=== PATIENT | male | born 1990 | race Two or more races ===

== ENCOUNTER 2024-12-27 15:04 | Emergency (ER) | payer MEDICAID, OTHER, SELFPAY ==
[2024-12-27 16:17] VITALS: BP 128/57; PULSE 61; RESP 16; TEMP 36.6; O2SAT 99; BMI 28.6
--- NOTE | 2024-12-27 16:22 | ED_ITS ---
HPI - Skin/Abscess/Foreign Bdy General Chief complaint: Urogenital-Male Stated complaint: scrotum itchy reddened Time Seen by Provider: 12/27/24 20:06 Source: patient Limitations: language barrier History of Present Illness ED Provider: Harmony Reis PA-C HPI narrative: 34-year-old male presents with rash over his genitalia x1 week. Patient states he has developed itchiness and redness over his penile head, shaft and the scrotum. Denies dysuria, penile discharge, scrotal swelling or risk for STD. No one else has the same rash. Patient does states he suffers from eczema at times. Related Data Allergies Allergy/AdvReac Type Severity Reaction Status Date / Time No Known Allergies Allergy Verified 12/27/24 16:29 Review of Systems Review of Systems: Yes all other systems are reviewed and are negative Constitutional: Constitutional: Denies fatigue and Denies fever(s) Cardiovascular: Cardiovascular: Denies chest pain and Denies dyspnea Respiratory: Respiratory: Denies dyspnea Gastrointestinal: Gastrointestinal: Denies abdominal pain, Denies nausea and Denies vomiting Genitourinary: Genitourinary: Denies genital lesions, Denies genital pain, Denies dysuria, Denies penile discharge and Denies scrotal swelling Integumentary/Breasts: Skin/Breast: Reports pruritus, Reports erythema and Reports rash Endocrine: Endocrine: Denies fatigue [facility] Past Medical History Attestation statement: The following information was validated with the patient. Social History Social History Advance Directives: No Advance Directives Information Provided: No Physical Exam Vital Signs: Vital Signs: Last Vital Signs Temp 97.9 F 12/27/24 16:17 Pulse 61 12/27/24 16:17 Resp 16 12/27/24 16:17 BP 128/57 L 12/27/24 16:17 Pulse Ox 99 12/27/24 16:17 O2 Del Method Room Air 12/27/24 16:17 BMI result Body Mass Index 28.6 Const: Other: Alert well-appearing Orientation/consciousness: patient oriented x3 Resp: Effort & Inspection: normal respiratory effort Cardio: Other: Normal peripheral perfusion : Other: I am not seeing a rash, I see what appears to be mildly erythematous chafed skin over the shaft just below the owens Skin: Other: Warm dry no rash Neuro: General: patient oriented x3, gait normal, no focal motor deficits and CN's II-XI intact bilaterally Psych: Other: Cooperative Course Course Course Narrative: This is a Rapid Medical Examination (RME) performed by Stevenson Lima PA-C in triage. Full HPI, ROS, assessment and treatment plan per primary provider in the Main ED. 34 yo male here for eval reports itchy red rash to groin area x3 days. sexually active with female partner. no penile discharge, abd pain, urinary sx. + area not visualized in triage d/t privacy Plan: UA/CTNG, further eval in back Medical Decision Making Medical Decision Making MDM Narrative: 34-year-old male presents with rash over his genitalia x1 week. Patient states he has developed itchiness and redness over his penile head, shaft and the scrotum. Denies dysuria, penile discharge, scrotal swelling or risk for STD. No one else has the same rash. Patient does states he suffers from eczema at times. Problem: Eczema History: Per patient I have considered the following differential diagnoses: Tinea cruris, molluscum, syphilis, herpes, urethritis, orchitis, epididymitis Plan: The patient has what is likely mild eczema, there was no evidence of tinea, there were no lesions that are suggestive of molluscum, this certainly is not syphilis or herpes he has no swelling/pain of the scrotum to suggest orchitis or epididymitis. No penile discharge or dysuria to suggest urethritis. Urinalysis and GC chlamydia were obtained from triage, I let the patient know that the GC chlamydia is pending and that he will be contacted for treatment if he tests positive. He verbalizes understanding. We will send with home care instructions. I have independently reviewed the following tests: Labs: Urine not infected, GC chlamydia pending Lab Data Labs: Lab Results 12/27/24 Range/Units 17:18 Urine Color Yellow Urine Appearance Clear Urine pH 5.5 (5.0-9.0) Ur Specific [place] 1.015 (1.005-1.025) Urine Protein Negative (Neg-Trace) mg/dL Urine Glucose (UA) Negative (Negative) mg/dL Urine Ketones Negative (Negative) mg/dL Urine Blood Negative (Negative) Urine Nitrite Negative (Negative) Ur Leukocyte Esterase Negative (Negative) Discharge Plan Discharge Clinical Impression: Eczema Patient Disposition: Home, Self-Care Instructions: Cold Compress or Soak (ED), Dermatitis (ED) Additional Instructions: Your skin irritation is not consistent with a sexually transmitted disease, it is likely eczema. See home care instructions. You can use topical hydrocortisone, apply a thin film to the itchy areas, twice a day. Also use a moisturizing lotion such as Eucerin. Both products can be purchased [id number]. Follow up with your primary care provider as needed. You have gonorrhea and chlamydia testing pending, if you screened positive, you will be contacted by the hospital for treatment. Print Language: English
[2024-12-27 17:24] LABS: Appearance Urine Clear; Color Urine Yellow; Glucose Urine UA Negative (Negative); Leukocyte Esterase Urine Negative (Negative); Nitrite Urine Negative (Negative); PH 5.5 (5.0-9.0); Specific Gravity - Urine 1.015 (1.005-1.025); Urine Blood Negative (Negative); Urine Ketones Negative (Negative); Urine Protein Negative (Neg-Trace)
--- OUTSIDE RECORDS SUMMARY | 2024-12-27 18:44 | XMS_ITS | Encounter Summary ---
Author Organization [employer] Address [address] [facility] [address] [place] [address] Care Team Providers Care Certified Professional Coder Name Role Phone Ravi Youssef NP Primary Care Provider [phone] Cassidy Dailey Unavailable Unavailable Austin Major Unavailable Unavail able Encounter Details Date Type Department Care Team (Late st Contact Info) Description 12/27/2024 Telephone [facility] MED[facility] [address] [place] [address] Ravi Youssef, GERMAN [address] [place] [address] Social History Tobacco Use Types Packs/Day Years Used Date Smoking Tobacco: Every Day Cigarettes Smokeless Tobacco: Never Alcohol Use Standard Drinks/Week Comments Yes 24 (1 standard drink = 0.6 oz pu re alcohol) Alcohol Answer Date Recorded How often do you have a drink containing alcohol ? 0 10/30/2023 How many drinks containing a lcohol do you have on a typical day when you are drinking? 0 10/30/2023 How often do you have six or more drinks on one occasion? 0 10/30/2023 Depression Answer Date Recorded Patient Health Questionnaire-9 Score 0 12/03/2023 Patient Health Questionnaire-9 Score 0 12/03/2023 Last PHQ-9: Questionnaire Data Not on file 0 12/03/2023 Housing Stability Answer Date Recorded What is your housing situation today? I have thang urena 05/04/[address] you li ve. Do you have problems with any of the following? None of the above 05/04/2024 Food Insecurity Answer Date Recorded Within the past 12 months, y ou worried that your food would run out before you got money to buy more: Never True 05/04/2024 Within the past 12 months,th e food you bought just didn't last and you didn't have enough money to get more: Never True 12/2023 Transportation Answer Date Recorded In the past 12 months, has l ack of transportation kept you from medical appts, meetings, work or from getting things needed for daily living? No 05/04/2024 Intimate Partner Violence Answer Date R ecorded Within the last year, have y ou been afraid of your partner or ex-partner? 2 10/30/2023 Within the last year, have y ou been humiliated or emotionally abused in other ways by your partner or ex-partner? 2 Within the last year, have y ou been kicked, hit, slapped, or otherwise physically hurt by your partner or ex-partner? 2 10/30/2023 Within the last year, have y ou been raped or forced to have any kind of sexual activity by your partner or ex-partner? 2 10/30/2023 Utilities Answer Date Recorded In the past 12 months, has t he [employer], gas, oil or water [employer] threatened to shut off services in your home? No 05/04/2024 Depression Answer Date Recorded Patient Health Questionnaire-2 Score 0 12/03/2023 Internet Access Answer Date Recorded Internet Access Q1 Yes 07/05/2024 Internet Access Q2 Not on file 07/05/2024 Sex and Gender Information Value Date Recorded Sex Assigned at Male 01/29/2023 11:38 AM EDT Legal Sex Male 11:35 AM EDT Gender Identity Male 01/29/2023 11:38 AM EDT Sexual Orientation Straight 01/29/2023 11 :38 AM EDT Occupation Industry Job Start Date Job End Date construction Not on file Not on file Not on file documented as of this encounter Miscellaneous Notes * Telephone Encounter - Aaliyah Hanson LPN - 12/27/2024 2:17 PM EST Spoke with pt via magistrate [phone]. He reports for the past week his penis has been red and irritated. Pt states it is extremely itchy. Pt was hoping to be seen today. No appointments appointments available this afternoon. Pt will go to the ED at [facility]. Please monitor for ED report. Thank you * Telephone Encounter - Aaliyah Hanson LPN - 12/27/2024 2:06 PM EST 12/27/2024 01:38 PM EST by Austin Warren Incoming Jonathan Noel (Self) Pt requested an urgent thelephone visit or an appt. documented in this encounter Plan of Treatment Upcoming Encounters Date Type Department Care Team (Late st Contact Info) Description 04/18/2025 8:00 AM EDT Office Visit [facility] ADULT DENTAL [address] [place] [address] Сергей Diallo documented as of this encounter Visit Diagnoses Not on filedocumented in this encounter Additional Health Concerns Assessment Noted Time PHQ-9 Depression Total Score: 0 12/03/19 1:19 PM EST documented as of this encounter Care Teams Certified Professional Coder Relationship Specialty Start Date End Date Ravi Youssef NP [address] [place] [address] PCP - General Internal Medicine 01/29/23 Cassidy Dailey Health Navigator Financial Counseling and Assistance Services 01/29/23 Austin Major Community Health Worker 07/23/23 documented as of this encounter
--- OUTSIDE RECORDS SUMMARY | 2024-12-27 18:44 | XMS_ITS | Encounter Summary ---
Author Organization [employer] Address [address] [facility] [address] [place] [address] Care Team Providers Care Soft Top Installer Name Role Phone Ravi Youssef HUMAN RESOURCES ASSOCIATE Primary Care Provider [phone] Cassidy Dailey Unavailable Unavailable Austin Major Unavailable Unavail able Encounter Details Date Type Department Care Team (Late st Contact Info) Description 01/19/2024 Orders Only [place] [facility] MED[facility] [address] [place] [address] Ravi Youssef, GERMAN [address] [place] [address] History of cardiomegaly Social History Tobacco Use Types Packs/Day Years [...] is your housing situation today? I have housing today, but I am worried about losing housing in the future 10/30/[address] you li ve. Do you have problems with any of the following? None of the above 10/30/2023 Food Insecurity Answer Date Recorded Within the past 12 months, y ou worried that your food would run out before you got money to buy more: Sometimes True 2022 Within the past 12 months,th e food you bought just didn't last and you didn't have enough money to get more: Sometimes True 10/30/2023 Transportation Answer Date Recorded In the past 12 months, has l ack of transportation kept you from medical appts, meetings, work or from getting things needed for daily living? Yes, it has kept me from medical appointments or getting medications. 10/30/2023 Intimate Partner Violence Answer Date R ecorded [...] the past 12 months, has t he electric, gas, oil or water company threatened to shut off services in your home? 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 Not on file documented as of this encounter Plan of Treatment Upcoming Encounters Date Type Department Care Team ([facility] st Contact Info) Description 04/18/2025 8:00 AM EDT Office Visit [facility] ADULT DENTAL [address] [place] [address] Сергей Diallo documented as of this encounter Procedures Procedure Name Priority Date/Time Associated Diagnosis Comments TRANSTHORACIC ECHO (TTE) COMPLETE Routine 01/16/2024 History of cardiomegaly documented in this encounter Results * Transthoracic Echo (TTE) Complete (01/16/2024) us Ravi Youssef HUMAN RESOURCES ASSOCIATE CV ECHO PROCEDURES Final Res ult documented in this encounter Visit Diagnoses Diagnosis History of cardiomegaly documented in this encounter Additional Health Concerns Assessment Noted Time PHQ-9 Depression Total Score: 0 12/03/19 24 1:19 PM EST documented as of this encounter Care Teams Soft Top Installer Relationship Specialty Start Date End Date Ravi Youssef NP [address] [place] [address] PCP - General Internal Medicine 01/29/23 Cassidy Dailey Health Navigator Financial Counseling and Assistance Services 01/29/23 Austin Major Community Health Worker 07/23/23 documented as of this encounter
--- OUTSIDE RECORDS SUMMARY | 2024-12-27 18:44 | XMS_ITS | Encounter Summary ---
Author Organization [employer] Address [address] [facility] [address] [place] [address] Care Team Providers Care Outdoor Adventure Leader Name Role Phone Ravi Youssef GERMAN Primary Care Provider [phone] Cassidy Dailey Unavailable Unavailable Austin Major Unavailable Unavail able Reason for Visit * Reason Comments [facility]: Medical Appt Encounter Details Date Type Department Care Team (Late st Contact Info) Description 12/27/2024 Patient Outreach [facility] Case Management [address] [place] [address] Austin Major [facility]: Medical Appt Social History Tobacco Use Types Packs/Day Years [...] Description 04/18/2025 8:00 AM EDT Office Visit [facility] ADULT D[facility] [address] [place] [address] Сергей Diallo documented as of this encounter Visit Diagnoses Not on filedocumented in this encounter Additional Health Concerns Assessment Noted Time PHQ-9 Depression Total Score: 0 12/03/19 24 1:19 PM EST documented as of this encounter Care Teams Outdoor Adventure Leader Relationship Specialty Start Date End Date Ravi Youssef NP [address] [facility] [place] [address] PCP - General Internal Medicine 01/29/23 Cassidy Dailey Health Navigator Financial Counseling and Assistance Services 01/29/23 Austin Major Community Health Worker 07/23/23 documented as of this encounter
--- OUTSIDE RECORDS SUMMARY | 2024-12-27 18:44 | XMS_ITS | Clinical Summary ---
Author Organization [employer] Address [address] [place] [address] [address] [place] [address] Care Team Providers Care Silk Printer Name Role Phone Ravi Youssef SUPERVISOR LAMP SHADES Primary Care Provider [phone] Cassidy Dailey Unavailable Unavailable Austin Major Unavailable Unavail able Allergies No known active allergies Medications * This document contains information received from the source organization and may not represent a complete record from that organization. ketoconazole (NIZOral) 2 % creamIndication s:Seborrheic dermatitis Apply topically 2 times daily. 30 g 1 Active Active Problems Problem Noted Date Diagnosed Date Adjustment disorder with mixed anxiety and depre ssed mood 12/04/2023 History of cardiomegaly 10/30/2023 Smoking 10/30/2023 Seborrheic dermatitis 10/30/2023 Encounters Date Type Department Care Team Description 12/27/2024 Telephone [place] [facility] MED[facility] [address] [place] [address] Ravi Youssef NP 12/27/2024 [facility] [address] [place] [address] Austin Major [facility]: Medical Appt 12/03/2024 [facility] [address] [place] [address] Austin Major EPIC Update 10/18/2024 8:00 AM EST Office Visit [facility] ADULT DENTAL [address] [place] [address] Сергей Diallo Dental calculus (Primary Dx) from Last 3 Months Immunizations Name Administration Dates Next Due Hep B, adult 05/04/2024,10/30/2023 Influenza injectable quadriv alent IIV4 with preservative 09/15/2023 Moderna Covid-19 Vaccine 12+ 05/04/2024 Family History Medical History Relation Name Comments Diabetes Father Hyperlipidemia Father Unknown status Mother No Known Problems Other 4 full sib lings, 2 half siblings, all alive and well Relation Name Status Comments Father Mother Other Social History Tobacco Use Types Packs/Day Years Used Date Smoking Tobacco: Every Day Cigarettes Smokeless Tobacco: Never Tobacco Cessation:Ready to Q uit: Not Asked; Counseling Given: Not Answered Alcohol Use Standard Drinks/Week Comments Yes 24 [...] the past 12 months, has t he [employer], gas, oil or water [employer] threatened to shut off services in your [...] file Not on file Not on file Last Filed Vital Signs Vital Sign Reading Time Taken Comments Blood Pressure 116/64 10/18/2024 8:07 AM EST Pulse 65 10/18/2024 8:07 AM EST Temperature 36.4 ??C (97.6 ??F) 05/04/2024 9:40 AM ED T Respiratory Rate 16 05/04/2024 9:40 AM EDT Oxygen Saturation 98% 05/04/2024 9:40 AM EDT Inhaled Oxygen Concentration - - Weight 80.7 kg (178 lb) 05/04/2024 9:40 AM EDT Height 165.1 cm (5' 5 ) 05/04/2024 9:40 AM EDT Body Mass Index 29.62 05/04/2024 9:40 AM EDT Plan of Treatment Upcoming Encounters Date Type Department Care Team (Late st Contact Info) Description 04/18/2025 8:00 AM EDT Office Visit [facility] ADULT DENTAL [address] [place] [address] Beauzile, Сергей Health Maintenance Due Date Last Done Comments Alcohol/Substance Use Screening 2003 Family Planning (PISQ) 2006 DTaP/Tdap/Td Vaccines (1 - Tdap) 2010 Pneumococcal Vaccine: Pediatrics (0 to 5 Years) and At-Risk Patients (6 to 49) Years) (1 of 2 - PCV) 2010 Hepatitis B Vaccines (3 of 3 - 19+ 3-dose series) 06/29/2024 05/04/2024, 10/30/2023 COVID-19 Vaccine (2 - 2023-2 5 season) 2024 05/04/2024 Influenza Vaccine (#1) 2024 09/15/2023 Depression Screening 12/03/2024 12/03/2023, 12/03/2023 Dental Oral Exam 04/19/2025 10/18/2024 Dental Prophylaxis 04/19/2025 10/18/2024 SDOH Screening 05/04/2025 05/04/2024 Tobacco Screening 10/18/2025 10/18/2024 Dental X-Ray: Bitewings 10/19/2025 10/18/2024 Dental X-Ray: Full Mouth 10/19/2027 10/18/2024 Lipid Panel 09/15/2028 09/15/2023 Zoster Vaccines (1 of 2) 2041 RSV Patients and Patients Aged 60 years or older (1 - 1-dose 75+ series) 2066 HIV Screening Completed 09/15/2023 Hepatitis C Screening Completed 09/15/2023 HIB Vaccines Aged Out No longer eligi ble based on patient's age to complete this topic HPV Vaccines Aged Out No longer eligi ble based on patient's age to complete this topic Hepatitis A Vaccines Aged Out No long er eligible based on patient's age to complete this topic IPV Vaccines Aged Out No longer eligi ble based on patient's age to complete this topic Meningococcal Vaccine Aged Out No valentine luis miguel eligible based on patient's age to complete this topic RSV under 20 months Aged Out No longe r eligible based on patient's age to complete this topic Rotavirus Vaccines Aged Out No longer eligible based on patient's age to complete this topic Procedures Procedure Name Priority Date/Time Associated Diagnosis Comments COMPREHENSIVE ORAL EVALUATION - NEW OR ESTABLISHED PATIENT Routine 10/18/2024 8:00 AM EST CASE PRESENTATION, DETAILED AND EXTENSIVE TREATMENT PLANNING Routine 10/18/2024 8:00 AM EST ORAL HYGIENE INSTRUCTIONS Routine 10/18/2024 8:00 AM EST INTRAORAL - COMPLETE SERIES OF RADIOGRAPHIC IMAGES Routine 10/18/2024 8:00 AM EST PROPHYLAXIS - ADULT Routine 10/18/2024 8 :00 AM EST 19 O COMPOSITE FILLING Routine 10/18/2024 12:00 AM EST 31 O AMALGAM FILLING Routine 10/18/2024 12:00 AM EST 30 O AMALGAM FILLING Routine 10/18/2024 12:00 AM EST 18 O AMALGAM FILLING Routine 10/18/2024 12:00 AM EST 14 O AMALGAM FILLING Routine 10/18/2024 12:00 AM EST 3 O AMALGAM FILLING Routine 10/18/2024 1 2:00 AM EST HEPATITIS C AB W/REFLEX TO HCV QUANT NAAT IF POSITIVE Routine 09/15/2023 3:12 PM EST Substance abuse (CMS/HCC) HIV ANTIBODY/ANTIGEN, 4TH GENERATION Routine 09/15/2023 3:12 PM EST Substance abuse (CMS/HCC) LIPID PANEL, STANDARD Routine 09/15/2023 3:12 PM EST Family history of hyperlipidemia from Last 3 Months or Most Recently Relevant to Health Maintenance Results * HIV Antibody/Antigen, 4th Generation (09/15/2023 3:12 PM EST) Result 4th Gen HIV Antibody Antigen NEGATIVE (NEG) [facility] Comment: Negative for antibodies to HIV 1 and HIV 2 and P24 antigen. Reference range: Negative Additional note: Written patient authorization is required for each separate release of this test result. This test was performed on the Henry Team Supervisor immunoassay system. Testing performed or reported by [facility], a Service of [facility], [place] [address] Reddy Francosi MD, Archives Director IA# [id number] Blood 09/15/2023 3:12 PM EST 09/15/2023 3:14 PM EST Ravi Mikael SUPERVISOR LAMP SHADES LAB BLOOD ORDERABLES Final R esult Performing Organization Address [facility] Co de Phone Number [facility] [address] [place] [phone] * Hepatitis C Antibody w/Reflex HCV Quant PCR (09/15/2023 3:12 PM EST) Pathologist [facility] Hepatitis C Virus Ab, Serum NEGATIVE (NEG) [facility] Comment: Reference range: Negative This test was performed on the [employer] Team Supervisor immunoassay system. Testing performed or reported by [facility], a Service of [facility], [address] [place] [address] [place] [address] Reddy Francois MD, Archives Director CLIA# [id number] 09/15/2023 3:12 PM EST 09/15/2023 3:14 PM EST Ravi Youssef SUPERVISOR LAMP SHADES LAB BLOOD ORDERABLES Final R esult Performing Organization Address [facility] de Phone Number [facility] [address] [place] [phone] * (ABNORMAL) Lipid panel (09/15/2023 3:12 PM EST) [facility] Cholesterol, Total 161 (<200) MG/DL [facility] Triglyceride (mg/dL) in Serum/Plasma 177(H) (<150) MG/DL [facility] HDL Cholesterol 52 (>39) MG/DL [facility] LDL Cholesterol, Calculated 74 (0-130) MG/DL [facility] Non HDL Chol. (LDL+VLDL) 109 (<160) MG/DL [facility] Comment: Testing performed or reported by [facility], a Service of [facility], [address] [place] [id number] Reddy Francois MD, Archives Director CLIA# [id number] Blood Venous blood specimen / Unknown 09/15/2023 3:12 PM EST 09/15/2023 3:14 PM EST Ravi Youssef SUPERVISOR LAMP SHADES LAB BLOOD ORDERABLES Final R esult Performing Organization Address [facility]/State/ZIP Co de Phone Number [facility] [address] [place] [address] from Last 3 Months or Most Recently Relevant to Health Maintenance Insurance [place] F[place] D[facility]AL-[facility] MEDICAID LIMITED ADULT DENTAL - HSN FULL (MEDICAID) Care Teams Silk Printer Relationship Specialty Start Date End Date Ravi Youssef NP [address] [place] [address] PCP - General Internal Medicine 01/29/23 Cassidy Dailey Health Navigator Financial Counseling and Assistance Services 01/29/23 Austin Major Community Health Worker 07/23/23
--- OUTSIDE RECORDS SUMMARY | 2024-12-27 18:44 | XMS_ITS | Encounter Summary ---
Author Organization [employer] Address [address] [place] [address] [address] [place] [address] Care Team Providers Care [employer] Operations Supervisor Name Role Phone Ravi Youssef GERMAN Primary Care Provider + [phone] Cassidy Dailey Unavailable Unavailable Austin Major Unavailable Unavail able Reason for Visit * Reason Comments EPIC Update Encounter Details Date Type Department Care Team (Late st Contact Info) Description 12/03/2024 Patient Outreach [facility] Case Management [address] [place] [address] Austin Major EPIC Update Social History Tobacco Use Types Packs/Day Years [...] the past 12 months, has t he [employer], gas, oil or water company threatened to [...] Description 04/18/2025 8:00 AM EDT Office Visit [facility] [address] [place] [address] Сергей Diallo documented as of this encounter Visit Diagnoses Not on filedocumented in this encounter Additional Health Concerns Assessment Noted Time PHQ-9 Depression Total Score: 0 12/03/19 24 1:19 PM EST documented as of this encounter Care Teams [employer] Supervisor Relationship Specialty Start Date End Date Ravi Youssef NP [address] [facility] [place] [facility] [place] [address] PCP - General Internal Medicine 01/29/23 Cassidy Dailey Health Navigator Financial Counseling and Assistance Services 01/29/23 Austin Major Community Health Worker 07/23/23 documented as of this encounter
[2024-12-27 22:22] VITALS: BP 112/76; PULSE 67; RESP 20; TEMP 36.6; O2SAT 99
[2024-12-27 22:23] VITALS: BP 112/76; PULSE 67; RESP 20; TEMP 36.6; O2SAT 99
[2024-12-28 11:54] LABS: CT PCR NOT DETECTED (Not Detect.); NG PCR NOT DETECTED (Not Detect.)
== END 2024-12-27 22:23 | disposition home or self-care (01) ==
PROVIDERS: Physician Assistant Medical; Emergency Provider Internal Medicine
DX: L30.9 Dermatitis, unspecified (principal); N48.29 Other inflammatory disorders of penis; Z20.2 Contact with and (suspected) exposure to infections with a predominantly sexual mode of transmission; Z79.899 Other long term (current) drug therapy
CPT/HCPCS: 81003; 87491; 87591; 99283; 99284